=== PATIENT | male | born 1975 | race Caucasian/White ===

== ENCOUNTER 2017-04-28 06:09 | Emergency (ER) | payer MEDICAID ==
[2017-04-28] MEDS ORDERED: TETANUS/DIPHTHERIA/PERTUSSIS 0.5 ML SYRINGE IM ONE (06:17)
[2017-04-28] MEDS ORDERED: LIDOCAINE 1%-EPI 1:100000 20 ML MDV SUBQ STA (06:17)
[2017-04-28 06:19] VITALS: BP 138/95
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
[2017-04-28] MEDS ORDERED: BACITRACIN OINT TOP ONE (06:48)
== END 2017-04-28 07:04 | disposition home or self-care (01) ==
LOC: ED 06:09
DX: S61.411A Laceration without foreign body of right hand, initial encounter (principal); W26.1XXA Contact with sword or dagger, initial encounter; Y92.009 Unspecified place in unspecified non-institutional (private) residence as the place of occurrence of the external cause; F17.200 Nicotine dependence, unspecified, uncomplicated; Z23 Encounter for immunization
CPT/HCPCS: 12004; 90471; 90715; 99282; 99283; A9270